=== PATIENT | female | born 1970 | race Caucasian/White ===

== ENCOUNTER 2022-05-26 10:46 | Outpatient (REF) | payer OTHER, SELFPAY ==
[2022-05-26 14:16] LABS: Urine Cytology See Pathology rpt
[2022-05-26 14:43] LABS: Appearance Urine Clear; Color Urine Yellow; Glucose Urine UA Negative (Negative); Leukocyte Esterase Urine Negative (Negative); Nitrite Urine Negative (Negative); PH 5.5 (5.0-9.0); Specific Gravity - Urine 1.015 (1.005-1.025); UMIC TRIGGER UA YES; Urine Blood Moderate (2+) (Negative); Urine Ketones Negative (Negative); Urine Protein Negative (Neg-Trace)
[2022-05-26 14:48] LABS: Bacteria Urine None Seen (None Seen); Hyaline Casts Urine 0-2 /LPF (0-2); Squamous Epithelial Cell Urine 0-2 /HPF (0-2); WBC Urine 0-5 /HPF (0-5)
[2022-05-26 15:04] LABS: Creatinine Urine 40.83 mg/dL; Microalbum/Creatinine Ratio Ur 17.1 ug/mg cr
== END 2022-05-26 10:47 | disposition home or self-care (01) ==
LOC: HO.LAB 10:46
PROVIDERS: Visit Provider Family Medicine
DX: R31.9 Hematuria, unspecified (principal); I10 Essential (primary) hypertension
CPT/HCPCS: 81001; 82043; 88112

== ENCOUNTER 2022-06-15 07:27 | Outpatient (REF) | payer OTHER, SELFPAY ==
[2022-06-15 11:32] LABS: Appearance Urine Turbid; Color Urine Yellow; Glucose Urine UA Negative (Negative); Leukocyte Esterase Urine Negative (Negative); Nitrite Urine Negative (Negative); PH 5.5 (5.0-9.0); UMIC TRIGGER UA YES; Urine Blood Moderate (2+) (Negative); Urine Ketones Negative (Negative); Urine Protein Negative (Neg-Trace)
[2022-06-15 11:50] LABS: Bacteria Urine None Seen (None Seen); Hyaline Casts Urine 0-2 /LPF (0-2); RBC Urine 0-2 /HPF (0-2); Squamous Epithelial Cell Urine 0-2 /HPF (0-2); WBC Urine 0-5 /HPF (0-5)
[2022-06-15 12:15] LABS: HBS Num1 8.07 mIU/mL (0-7.99); HBc Num1 0.08 S/CO (0.00-0.79); HBsAGNum1 0.35 S/CO (0.00-0.99); HIV AB/AG Nonreactive (Nonreactive); HIV Num 1 0.06 S/CO (0.00-0.99); Hepatitis B Core Antibody Nonreactive (Nonreactive); Hepatitis B Surface Antigen Negative (Negative); ~HepC Num1 0.16 S/CO (0.00-0.79); ~Hepatitis C Antibody Nonreactive (Nonreactive)
[2022-06-15 12:16] LABS: Alanine Aminotransferase 10 U/L (0-31); Albumin Level 4.1 g/dL (3.5-5.0); Alkaline Phosphatase 51 U/L (39-117); Anion Gap 9 (12-20); Aspartate Amino Transferase 15 U/L (5-31); Bilirubin Total 0.4 mg/dL (0.0-1.0); Blood Urea Nitrogen 25 mg/dL (9-16); Calcium 8.9 mg/dL (8.4-10.2); Carbon Dioxide 29 mmol/L (22-29); Chloride 107 mmol/L (96-108); Cholesterol 234 mg/dL; Estimated Glomerular Filt Rate > 60; Glucose Fasting 93 mg/dL (60-99); HDL Cholesterol 74 mg/dL; LDL Cholesterol Calculated 152 mg/dl; Potassium 5.2 mmol/L (3.3-5.1); Sodium 140 mmol/L (135-145); Syphilis Screen Nonreactive (Nonreactive); TSH reflex Free T4 5.19 uIU/mL (0.32-4.0); Total Protein 6.5 g/dL (6.5-8.0); Triglycerides 43 mg/dL
[2022-06-15 13:14] LABS: Free T4 (Free Thyroxine) 0.84 ng/dL (0.71-1.85)
[2022-06-15 13:38] LABS: HBS Num2 7.73 mIU/mL (0-7.99); HBS Num3 8.25 mIU/mL (0-7.99)
[2022-06-15 13:39] LABS: ~Hepatitis B Surface Antibody GRAYZONE (Nonreactive)
== END 2022-06-15 07:28 | disposition home or self-care (01) ==
LOC: HO.HMGCLDS 07:27
PROVIDERS: PCP Family Medicine; Visit Provider Family Medicine
DX: Z00.00 Encounter for general adult medical examination without abnormal findings (principal); Z20.2 Contact with and (suspected) exposure to infections with a predominantly sexual mode of transmission
CPT/HCPCS: 36415; 80053; 80061; 81001; 84439; 84443; 86704; 86706; 86780; 86803; 87340; 87389

== ENCOUNTER 2022-06-20 07:49 | Outpatient (RCR) | payer OTHER, SELFPAY ==
--- NOTE | 2022-06-20 08:58 | MHC.PT.EP ---
[facility] [place] Office [place] [facility] [place] Office [address] [phone] F: [phone] F: [phone] F: [phone] F: [phone] Physical Therapy Plan of Care Date of Evaluation: Date of Surgery: none Diagnosis: Pain in L shoulder Assessment: Patient is a 52 year old R handed female who presents with s/s consistent with L shoulder pain. She works with daily job demands including cleaning. Patient past medical history is fairly unremarkable. Current impairments include pain, posture, ROM, strength, activity tolerance and functional mobility. Functional limitations include decreased ability to reach, dress, style hair, clean and sleep. Patient is motivated with good rehab potential. Skilled PT will address impairments and functional limitations in order to achieve goals. Frequency and Duration: The patient will be seen 1x/ week for 6 weeks Short Term Goals: I with HEP - 2 weeks AROM flexion and scaption > 100 - 3 weeks ER/IR arc > 120 - 3 weeks [facility] Goals: strength 4/5 grossly - 6 weeks SPADI 45/130 or better - 6 weeks normal ghjt motion - 6 weeks Treatment Plan: Modalities to reduce pain, spasms and effusion. Manual therapy to restore motion and function. Therapeutic exercise to improve strength and flexibility. Neuromuscular re-education for posture and balance. Therapeutic activities to return to functional activities of daily living. Electronically signed by: Venkat Christensen, PT Please sign and return to therapist. Thank you for your referral.
--- NOTE | 2022-08-09 08:26 | MHC.PT.DC ---
[facility] [place] Office [place] Office [place] Office [address] Tanvir Hardin 140 [facility] [phone] F: [phone] F: [phone] F: [phone] F: [phone] Physical Therapy Discharge Report Diagnosis: Pain in L shoulder Date of Surgery: none Date of Evaluation: 06/20/22 Date of Discharge: 06/20/22 Treatments to Date: 1 Cancellations to Date: No Shows to Date: Discharge Status: Patient Elected to Stop Discharge Summary: Pt did not return after evaluation. Patient is a 52 year old R handed female who presents with s/s consistent with L shoulder pain. She works with daily job demands including cleaning. Patient past medical history is fairly unremarkable. Current impairments include pain, posture, ROM, strength, activity tolerance and functional mobility. Functional limitations include decreased ability to reach, dress, style hair, clean and sleep. Patient is motivated with good rehab potential. Skilled PT will address impairments and functional limitations in order to achieve goals. Electronically signed by: Venkat Christensen, PT Please sign and return to therapist. Thank you for your referral.
== END 2022-08-09 08:26 | disposition home or self-care (01) ==
LOC: HO.PTCHIC 07:49
PROVIDERS: PCP Family Medicine; Visit Provider Family Medicine
DX: M25.512 Pain in left shoulder (principal)
CPT/HCPCS: 97110; 97161

== ENCOUNTER 2022-08-08 12:00 | Outpatient (REF) | payer OTHER, SELFPAY ==
[2022-08-09 08:21] LABS: Urine Cytology See Pathology rpt
== END 2022-08-08 12:01 | disposition home or self-care (01) ==
LOC: HO.LNP 12:00
PROVIDERS: PCP Family Medicine; Visit Provider Nurse Practitioner Family
DX: N39.0 Urinary tract infection, site not specified (principal); R31.29 Other microscopic hematuria
CPT/HCPCS: 87086; 87088; 87186; 88112

== ENCOUNTER 2022-09-05 | Outpatient (REF) | payer OTHER, SELFPAY ==
--- NOTE | ~2022-09-05 | US_ITS ---
EXAMINATION: US RETROPERITONEAL COMPLETE (RENAL) CLINICAL INFORMATION: Hematuria, unspecified. COMPARISON: None available. TECHNIQUE: Real-time imaging of the kidneys and bladder. FINDINGS: RIGHT KIDNEY: 10.4 x 3.3 x 4.4 cm (SAG x AP x TRV). The kidney is normal in size and echogenicity. Right kidney appears malrotated congenitally. Renal cortical thickness is normal. No calculi or focal parenchymal lesions. No hydronephrosis. LEFT KIDNEY: 9.3 x 5.6 x 4.8 cm (SAG x AP x TRV). The kidney is normal in size, contour, and echogenicity. Renal cortical thickness is normal. No focal parenchymal lesions or hydronephrosis. 3 mm nonobstructing upper pole renal stone. BLADDER: Well distended. Bilateral ureteral jets are demonstrated. Prevoid bladder volume is 531.5 mL. Postvoid bladder volume is 4.0 mL. Debris in the urinary bladder. Echogenic focus without twinkle artifact noted in the proximal aspect of the regions urethra measuring 4 mm could potentially reflect a urethral stone in the appropriate clinical setting and recommend correlation with clinical symptoms. US/US retroperitoneal comp IMPRESSION: 1. Echogenic focus without twinkle artifact noted in the proximal aspect of the regions of urethra measuring 4 mm and could potentially reflect a urethral stone in the appropriate clinical setting and recommend correlation with clinical symptoms. 2. A 3 mm nonobstructing left upper pole renal stone. 3. Right kidney appears malrotated congenitally.
== END 2022-09-05 00:01 | disposition home or self-care (01) ==
LOC: HO.US
PROVIDERS: PCP Family Medicine; Visit Provider Nurse Practitioner Family
DX: R31.9 Hematuria, unspecified (principal); N39.0 Urinary tract infection, site not specified
CPT/HCPCS: 76770